=== PATIENT | male | born 1990 | race Two or more races ===

== ENCOUNTER 2021-02-24 13:59 | Emergency (ER) | payer OTHER ==
[2021-02-24] MEDS ORDERED: Cyclobenzaprine 10 MG Tab PO ONE (14:57)
[2021-02-24] MEDS ORDERED: Lidocaine 5% 700 MG Patch TRDERM ONE (14:58)
[2021-02-24] MEDS ORDERED: Ketorolac 15 MG/ML SDV IM STA (14:59)
--- NOTE | 2021-02-24 15:08 | EDM.PDOC ---
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 Patient denies any fevers, shakes, chills, nausea, vomiting, diarrhea, dysuria, frequency, urgency, chest pain, shortness of breath. Patient has any weakness to his upper or lower extremities. Patient reports normal gait except for pain. Patient denies any loss of bowel or bladder function. Patient denies any paresthesias around his perineal or perianal area. Patient denies any IVDA. Patient reports pain increases with rotation of his torso. Review of systems: As per history of present illness and below otherwise all systems reviewed and negative. Past medical history: As per history of present illness and as reviewed below otherwise noncontributory. Surgical history: As per history of present illness and as reviewed below otherwise noncontributory. Social history: No reported history of drug abuse. Family history: As per history of present illness and as reviewed below otherwise noncontributory. Physical exam: This patient was seen and evaluated during the 2019 SARS-CoV-2 novel coronavirus pandemic period. Community viral transmission is ongoing at time of this encounter and the emergency department is operating under pandemic response procedures. Constitutional: Patient is oriented to person, place, and time. Appears well- developed and well-nourished. No distress. HEENT: Moist mucous membranes Head: Normocephalic and atraumatic Eyes: Right eye exhibits no discharge. Left eye exhibits no discharge. No scleral icterus Neck: Normal range of motion. No tracheal deviation present. Cardiovascular: Normal rate and regular rhythm. Pulmonary: Effort normal, no respiratory distress. Abdominal: No distention Musculoskeletal: Normal range of motion Neurologic: Alert and oriented to person, place and time. Skin: [place], warm and dry. Psychiatric: Normal mood and affect. Behavior is normal. Judgment and thought content normal. Nursing note and vital signs have been reviewed Patient's ER physical exam is significant for reproducible tenderness to palpation to his right lower back. Patient has no point C, T, L-spine tenderness. Patient is a normal neurological exam otherwise. Patient is able to ambulate in the ER with normal gait. Patient has normal 5 out of 5 strength. Patient was sensation is intact to light touch and pinprick. 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 Patient is requesting assistance with the pain and is also requesting a work note for couple days to get some rest for his back. Patient does not present with any signs or symptoms that would be concerning for cord injury, epidural abscess, cauda equina or other acute cord pathology. Patient be given a dose of Lidoderm patch, Toradol and Flexeril and will be instructed to follow-up with a workman's comp doctor in the next 1 to 2 days for reevaluation. Reassessment at the time of disposition demonstrates that the patient is in no acute distress. The patient has remained stable throughout the entire ED visit and is without objective evidence for acute process requiring urgent intervention or hospitalization. The patient is stable for discharge, counseling is provided as documented above, discussed symptomatic treatment and specific conditions for return. I have spoken with the patient/caregiver and discussed todays findings, in addition to providing specific details for the plan of care. Questions are answered and there is agreement with the plan. Definitive disposition and diagnosis as appropriate pending reevaluation and review of above. Right Lower Back Pain Score (Numeric/FACES): 8 - Related Data Allergies Allergy/AdvReac Type Severity Reaction Status Date / Time No Known Allergies Allergy Verified 02/24/21 14:25 Home Meds: Home Meds Cyclobenzaprine [Flexeril] 10 mg PO TID PRN #20 tab 02/24/21 [Rx] Ibuprofen 600 mg PO Q6HR PRN #30 tablet 02/24/21 [Rx] Lidocaine 5% [Lidoderm 5%] 1 patch TOP DAILY PRN #7 patch 02/24/21 [Rx] Past Medical History - Past Health History Medical/Surgical History: Denies Medical/Surgical History - Infectious Disease History Infectious Disease History: Reports: None Social & Family History - Tobacco Use Tobacco Use Status *Q: Never Tobacco User - Caffeine Use Caffeine Use: Reports: None - Recreational Drug Use Recreational Drug Use: No ED ROS GENERAL - Review of Systems Review Of Systems: See Below ED EXAM, GENERAL - Physical Exam Exam: See Below Course - Vital Signs Last Recorded V/S: Last Vital Signs Temp 96.8 F L 02/24/21 14:25 Pulse 82 02/24/21 14:25 Resp 16 02/24/21 14:25 BP 123/86 02/24/21 14:25 Pulse Ox 96 02/24/21 14:25 - Orders/Labs/Meds Meds: Medications Discontinued Medications Generic Name Dose Route Start Last Admin Trade Name Freq PRN Reason Stop Dose Admin Cyclobenzaprine HCl 10 mg 02/24/21 14:57 Cyclobenzaprine 10 Mg Tab PO 02/24/21 14:58 ONETIME ONE Ketorolac Tromethamine 15 mg 02/24/21 14:59 Ketorolac 15 Mg/Ml Sdv IM 02/24/21 15:00 Q6H STA Lidocaine 700 mg 02/24/21 14:58 Lidocaine 5% 700 Mg Patch TRDERM 02/24/21 14:59 ONETIME ONE Departure - Departure Time of Disposition: 15:08 Disposition: Home, Self-Care 01 Condition: Good Clinical Impression: Low back strain Qualifiers: Encounter type: initial encounter Qualified Code(s): S39.012A - Strain of muscle, fascia and tendon of lower back, initial encounter - Discharge Information Instructions: Lumbosacral Strain Referrals: PCP,None [Primary Care Provider] - Additional Instructions: Your seen and evaluated in the ER today secondary to lower back strain that occurred at work while lifting up a heavy object. You will be given a prescription for a lidocaine patch, Flexeril which is a muscle relaxant, and strength ibuprofen which is an anti-inflammatory. Please take these medications ago plenty of rest over the next 1 to 2 days. You will be given a work note for 2 days off to get some rest. Please make an appointment to follow-up with Workmen's Comp. doctors for further evaluation of your pain. [facility] [address] [id number] The following information is given to patients seen in the emergency department who are being discharged to home. This information is to outline your options for follow-up care. We provide all patients seen in our emergency department with a follow-up referral. The need for follow-up, as well as the timing and circumstances, are variable depending upon the specifics of your emergency department visit. If you don't have a primary care physician on staff, we will provide you with a referral. We always advise you to contact your personal physician following an emergency department visit to inform them of the circumstance of the visit and for follow-up with them and/or the need for any referrals to a consulting specialist. The emergency department will also refer you to a specialist when appropriate. This referral assures that you have the opportunity for follow-up care with a specialist. All of these measure are taken in an effort to provide you with optimal care, which includes your follow-up. Under all circumstances we always encourage you to contact your private physician who remains a resource for coordinating your care. When calling for follow-up care, please make the office aware that this follow-up is from your recent emergency room visit. If for any reason you are refused follow-up, please contact the Emergency Department at and asked to speak to the emergency department charge nurse. [facility] [address] [place] [id number] [facility] [address] [place] [id number] Sepsis Event Note (ED) - Focused Exam Vital Signs: Vital Signs Temp Pulse Resp BP Pulse Ox 02/24/21 14:25 96.8 F L 82 16 123/86 96
== END 2021-02-24 15:26 | disposition home or self-care (01) ==
LOC: MW.ED 13:59
DX: S39.012A Strain of muscle, fascia and tendon of lower back, initial encounter (principal); X50.0XXA Overexertion from strenuous movement or load, initial encounter; Y92.69 Other specified industrial and construction area as the place of occurrence of the external cause
CPT/HCPCS: 96372; 99283; A9270; J1885

== ENCOUNTER 2021-09-15 13:58 | Emergency (ER) | payer SELFPAY ==
[2021-09-15] MEDS ORDERED: Sodium Chloride 0.9% 10 ML Syringe FLUSH PRN (14:13)
[2021-09-15] MEDS ORDERED: Sodium Chloride 0.9% 1,000 ML IV ONE (14:13)
[2021-09-15] MEDS ORDERED: Sodium Chloride 0.9% 2.5 ML Syringe FLUSH PRN (14:13)
[2021-09-15 15:11] LABS: BLOOD UREA NITROGEN,BUN 9 mg/dL (7.0-18.0); CARBON DIOXIDE,CO2 26.7 mmol/L (21.0-32.0); CHLORIDE,CL 107 mmol/L (98-107); GLUCOSE RANDOM 83 mg/dL (74-106); POTASSIUM,K 3.7 mmol/L (3.5-5.1); SODIUM,NA 142 mmol/L (136-148)
== END 2021-09-15 16:15 | disposition home or self-care (01) ==
LOC: MW.ED 13:58
DX: K62.5 Hemorrhage of anus and rectum (principal)
CPT/HCPCS: 36415; 80053; 85025; 85610; 93005; 99283; J7030

== ENCOUNTER 2021-09-30 08:18 | Day surgery (SDC) | payer SELFPAY ==
[~2021-09-30 08:18] MED LIST: Lactated Ringers 1,000 ML IV SCH; Midazolam 1 MG/ML 2 ML SDV ONE; Ondansetron 4 MG/2 ML SDV ONE; Propofol 200 MG/20 ML SDV ONE; fentaNYL 100 MCG/2 ML SDV ONE
[2021-09-30] MEDS ORDERED: Propofol 200 MG/20 ML SDV ONE (10:12)
== END 2021-09-30 11:14 | disposition home or self-care (01) ==
LOC: MW.SDS 08:18
PROVIDERS: ATTEND Surgery
DX: R19.5 Other fecal abnormalities (principal); K21.00 Gastro-esophageal reflux disease with esophagitis, without bleeding; K22.89 Other specified disease of esophagus; K29.70 Gastritis, unspecified, without bleeding; E66.9 Obesity, unspecified; F17.210 Nicotine dependence, cigarettes, uncomplicated; Z68.33 Body mass index [BMI] 33.0-33.9, adult
CPT/HCPCS: 43239; 45380; J2250; J2405; J2704; J3010; J7120; 00813

== ENCOUNTER 2021-11-03 12:28 | Emergency (ER) | payer OTHER ==
[2021-11-03] MEDS ORDERED: Ketorolac 60 MG/2 ML SDV IM ONE (14:05)
== END 2021-11-03 15:41 | disposition home or self-care (01) ==
LOC: MW.ED 12:28
DX: S93.401A Sprain of unspecified ligament of right ankle, initial encounter (principal); S40.011A Contusion of right shoulder, initial encounter; S20.221A Contusion of right back wall of thorax, initial encounter; K21.9 Gastro-esophageal reflux disease without esophagitis; E66.9 Obesity, unspecified; Z68.34 Body mass index [BMI] 34.0-34.9, adult; X50.0XXA Overexertion from strenuous movement or load, initial encounter
CPT/HCPCS: 71045; 73030; 73610; 96372; 99283; J1885